=== PATIENT | male | born 1970 | race Caucasian/White ===

== ENCOUNTER 2024-05-02 07:18 | Day surgery (SDC) | payer OTHER ==
[2024-04-30 16:04] LABS: Absolute Eosinophils 0.1 K/uL (0-0.5); Absolute Monocytes 0.7 K/uL (0.1-1.3); Absolute Neutrophil 5.1 K/uL (1.8-8.0); Basophils % 0.5 % (0-1.3); Eosinophils % 0.9 % (0-4.4); Hematocrit 43.4 % (39.6-49.0); Hemoglobin 14.6 g/dL (13.6-17.9); Lymphocytes % 25.1 % (15.3-44.8); MCH 29.5 pg (27.0-35.0); MCHC 33.7 g/dL (32.0-36.0); MCV 87.6 fL (80-100); MPV 7.5 fL (7.6-11.3); Monocytes % 8.8 % (3.3-12.3); Neutrophils % 64.7 % (41.7-73.7); Nucleated Red Blood Cells % 0.1 % (0-0); Platelets 219 thou/uL (152-406); RBC Red Blood Cell Count 4.96 M/uL (4.33-5.43); Red Cell Distribution Width 14.5 % (12.1-15.2)
[2024-04-30 16:18] LABS: Anion Gap 8.8 mEq/L (5.0-15.0); Potassium 3.8 mEq/L (3.5-5.1)
[2024-05-02] MEDS: Ringers Lactate 1,000 ML IV ONE ×2 (07:30→11:00)
[2024-05-02] MEDS ORDERED: LIDOCAINE 1% MPF 5 ML VIAL ONE (09:13)
[2024-05-02] MEDS ORDERED: ONDANSETRON 4 MG/2 ML VIAL ONE (09:13)
[2024-05-02] MEDS ORDERED: dexAMETHasone 10 MG/ML VIAL ONE (09:13)
[2024-05-02] MEDS ORDERED: GLYCOPYRROLATE 0.2 MG/ML SYR ONE (09:13)
[2024-05-02] MEDS ORDERED: propofoL 200 MG/20 ML VIAL IV ONE (09:13)
[2024-05-02] MEDS ORDERED: ROCURONIUM 50 MG/5 ML VIAL IV ONE (09:14)
[2024-05-02] MEDS ORDERED: FENTANYL CITR 250 MCG/5 ML ONE (09:14)
[2024-05-02] MEDS ORDERED: MIDAZOLAM HCL 2 MG/2 ML INJ ONE (09:14)
[2024-05-02] MEDS: LIDOCAINE HCL/EPINEPHRINE 20 ML MDV ONE (09:58)
[2024-05-02] MEDS ORDERED: ESMOLOL HCL 10 ML IV ONE (09:59)
[2024-05-02] MEDS: CEFAZOLIN SODIUM 2 GM/VIAL ONE (10:00)
[2024-05-02] MEDS ORDERED: Phenylephrine HCl 10 MG/ML 1 ML VIAL ONE (10:33)
[2024-05-02] MEDS ORDERED: KETOROLAC 30 MG/ML INJ ONE (12:38)
[2024-05-02] MEDS: HYDROMORPHONE HCL 1 MG/ML INJ ONE (13:35)
--- NOTE | 2024-05-02 13:41 | RAD REPORT ---
Procedure: Chest Single View HISTORY: Inspiratory implant placement COMPARISON: 2017 FINDINGS: The lungs appear clear of acute infiltrate. No significant pleural effusion noted. The heart is normal size. Inspire battery pack overlies the right chest. The lead extends into the right neck.
--- NOTE | 2024-05-02 13:44 | RAD REPORT ---
EXAM:Neck Soft Tissue CLINICAL HISTORY: Inspire device placement FINDINGS: The superior lead of the inspire device overlies the tongue base
[2024-05-02 15:50] VITALS: BP 133/90; TEMP 97.3; O2SAT 99
--- NOTE | 2024-05-03 14:20 | OP ---
Date of Procedure: 05/02/2024 Surgeon: WILL STEWARD Preoperative Diagnoses: 1. Chronic obstructive sleep apnea, intolerant to CPAP use. 2. Body mass index 28.0 -- 28.9, adult. Postoperative Diagnoses: 1. Chronic obstructive sleep apnea, intolerant to CPAP use. 2. Body mass index 28.0 -- 28.9, adult. Procedures: 1. Neuro-Stimulation of hypoglossal nerve with open implantation, pulse generator, and distal respira tory sensor electrode or electrode array. 2. Continuous intraoperative neurophysiology monitoring in the operating room. One on one monitoring requiring personal attendance each 15 minutes with a nerve integrity monitoring system, [employer]. Anesthesia: General endotracheal anesthesia was administered. I also infiltrated approximately 10 m L of 1% lidocaine with 1:100,000 epinephrine into the right upper neck and right upper chest incision s. Findings: Large robust hypoglossal, hyoglossal, and genioglossal nerves and nerve branches. Specimens: None. Estimated Blood Loss: Less than 10 mL. Complications: None. Disposition: Stable. The patient tolerated the procedure well. Indication For Procedure: The patient is a pleasant 53-year-old male with chronic obstructive sleep apnea, who has been intolerant to CPAP use despite multiple attempts at utilization. These are indic ations to bring the patient to operative suite for the above-mentioned procedure. He understood, all questions were answered. Risks versus benefits, complications were explained in detail and a consen t form was signed and was placed in the chart. Description Of Procedure: The patient was transferred from the preoperative holding area to the oper ative suite by Department of Anesthesia, placed on the operating table supine, sedated, and intubated in normal fashion. Table was rotated to 180 degrees and a shoulder roll and head rest were placed. We extended and slightly rotated the head and neck to the left in order to expose the right upper ne ck. The nerve integrity monitoring system and electrodes were placed into the body of the hyoglossus and genioglossus muscles and we calibrated the electrodes as well as grounding electrodes to the pat ient and found that the probes were working appropriately. Next, I infiltrated the neck and chest incision sites with 10 mL of 1% lidocaine with 1:100,000 epine phrine and the patient was then sterilely prepped and draped. I made a modified submandibular incision in the right upper neck approximately 1 cm below the mandibl e. Dissection was carried down using a #15 blade scalpel to the subcutaneous tissue and then I disse cted through the platysma with monopolar electrocautery. I then switched to LigaSure for division of subcutaneous and subplatysmal tissue. Dissection was carried down to the anterior digastric tendon, which was easily visualized. I placed 2 throw down knots on the tendon with 2.0 silk, one medial, a nd one lateral. The submandibular gland and overlying fascia were then retracted posterior to keep i t protected. The digastric tendon was retracted inferiorly and dissection continued down to the diga stric triangle where the posterior border of the mylohyoid was located and this was retracted superom edially with [employer] retractors. At this point, I was able to see the hyoglossus and hypoglossal n erve branches and a C1 nerve branch located medially. We dissected the hypoglossal nerve up to the f tina of the mouth and the superior and posterior branches innervating the hyoglossus were identified using the NIM stimulator and with anatomical cues. The stimulator was then placed distally to the br anches innervating the genioglossus, transverse, cervical, and vertical muscles. I was able to obtai n C1 branch into the cuff without causing traction. The cuff was then placed around C1 and the hypog lossal nerve branches and was stimulated and found to be working appropriately. I secured the 2 anch ors to the digastric tendon with the previously placed throw down knots. The leads were then gently tucked deep to the submandibular gland and saline was introduced into the cuff for appropriate electr ode stimulation. Next, attention was placed to the chest where a 5 cm incision was made in the right upper chest over the second intercostal space, approximately 3 cm lateral to the sternal margin. A #15 blade scalpel was used to initially carry the dissection down to the subcutaneous tissue and then I switched to the LigaSure to dissect down to the fascia of the pectoralis muscle. Two throw down knots were placed i nto the pectoralis muscle fascia and then an inferior pocket for the generator was created deep to th e subcutaneous layer and superficial to the fascia of the pectoralis muscle. I then utilized retract ors and LigaSure to dissect through the pectorals major muscle and then the pectorals major muscles w ere then retracted to expose the fatty layer just superficial to the external intercostal muscles. T he fatty layer was carefully swept away to expose external intercostal muscle fascia. I was able to see the junction between the internal and external intercostal muscles. Thus, I utilized a Anthony luis small scissors to make a very small pocket through the external intercostal muscles fascia and then I placed the respiratory generator lead into the pocket and once the respiratory generator was secur ed, I was able to secure the anchor to the fascia of the muscles with 2.0 silk suture. The secondary anchor was then sutured to the pectoralis major muscle, allowing adequate slack between the anchors. At this point, the stimulation lead was then tunneled in a subplatysmal plane from the neck. I initi ally used tonsil dissectors and hemostats under direct visualization and then the tunneling device wa s then introduced into the same pocket and brought out from the neck incision to the chest pocket whe re both the stimulation respiratory sensing leads were located. These leads were then connected to t he implant. I connected the lead to the implantable pulse generator using the 2 person 3-handed appr [facility]. The implantable pulse generator was then placed into the subclavicular pocket, ensuring that t he lead body was deep to the generator and secured with the use of buried knot to the pectoralis fasc ia using 2.0 silk sutures. Diagnostic evaluation confirmed good placement of the stimulation cuff. The patient had strong stiff ening and protrusion of the tongue during testing and this was confirmed visually and through diagnos tic evaluation and we confirmed good respiratory sensor placement, which demonstrated by sensing wave form with good rise and fall associated with the patient's respirations. Next, all wounds were thoro ughly irrigated and closed in 3 layers with deep 3-0 Vicryl sutures in a simple interrupted fashion f ollowed by dermal layer closure in a simple interrupted fashion with 4-0 Monocryl suture and then sub cuticular epidermal closure with 4-0 Monocryl suture. Mastisol and Steri-Strips were applied followe d by compressive dressings. The patient was awakened, extubated, and transferred to the [facility] in stable condition. A stat AP chest and lateral neck x-ray were performed, which showed no eviden ce of pneumothorax and adequate placement of the implants and lead generators. There was no evidence of a hematoma. Thus, the patient was then discharged home the same day on antibiotic and analgesic medication, and will follow up in one week or sooner if needed. JUAN CARLOS/WAGNER Voice ID: [id number] Report ID: [id number]
== END 2024-05-02 15:10 | disposition home or self-care (01) ==
LOC: OR 07:18
PROVIDERS: ATTEND Otolaryngology Facial Plastic Surgery
PROC: 0JH63MZ Insertion of Stimulator Generator into Chest Subcutaneous Tissue and Fascia, Percutaneous Approach (ICD-10-PCS; principal; 2024-05-02 08:30)
DX: G47.33 Obstructive sleep apnea (adult) (pediatric) (principal)
CPT/HCPCS: 36415; 70360; 71045; 80048; 85025; J1100; J1171; J2003; J2250; J2371; J2405; J2704; J3010; J7120